=== PATIENT | male | born 2000 | race Caucasian/White ===

== ENCOUNTER 2020-05-19 14:52 | Emergency (ER) | payer BC ==
[~2020-05-19] VITALS: Ht 185.4 cm; Wt 77.1 kg
--- NOTE | 2020-05-19 14:55 | NUR ---
NO ANSWER FROM TRIAGE
--- NOTE | 2020-05-19 14:59 | NUR ---
NO ANSWER FROM TRIAGE
[2020-05-19 15:08] VITALS: BP 146/87
[2020-05-19 15:39] LABS: BASOPHILS % (AUTO) 1 % (0-1); EOSINOPHILS % (AUTO) 2 % (1-7); LYMPHOCYTES % (AUTO) 23 % (22-44); MEAN CORPUSCULAR HEMOGLOBIN 32.7 pg (27.5-34.5); MEAN CORPUSCULAR HGB CONC 35.4 g/dL (33.2-36.2); MEAN PLATELET VOLUME 6.4 fL (7.4-10.4); MONOCYTES % (AUTO) 12 % (2-9); NEUTROPHILS % (AUTO) 62 % (42-75); PLATELET COUNT 238 x10^3/uL (130-400); RED BLOOD COUNT 5.62 x10^6/uL (4.38-5.82); RED CELL DISTRIBUTION WIDTH 12.6 % (9.4-14.8)
[2020-05-19 15:41] LABS: MD NO
[2020-05-19 15:51] LABS: ALBUMIN 4.8 g/dL (3.4-5.0); ANION GAP 4 mmol/L (5-15); CALCIUM 9.6 mg/dL (8.5-10.1); CHLORIDE 106 mmol/L (98-107); CREATININE 1.01 mg/dL (0.7-1.3)
[2020-05-19] MEDS ORDERED: KETOROLAC 30 MG/1 ML IM ONE (16:30)
[2020-05-19] MEDS ORDERED: KETOROLAC 60 MG/2 ML ONE (16:41)
== END 2020-05-19 17:08 | disposition home or self-care (01) ==
LOC: ED 15:26
DX: R07.89 Other chest pain (principal); M79.18 Myalgia, other site; I11.0 Hypertensive heart disease with heart failure; I50.9 Heart failure, unspecified; R94.31 Abnormal electrocardiogram [ECG] [EKG]
CPT/HCPCS: 36415; 71045; 80048; 82040; 85025; 93005; 99285